=== PATIENT | male | born 1990 | race Caucasian/White ===

== ENCOUNTER 2021-04-27 01:04 | Emergency (ER) | payer BC, MEDICAID ==
[~2021-04-27] VITALS: Ht 172.7 cm; Wt 95.3 kg
[2021-04-27 01:07] VITALS: BP 141/75
--- NOTE | 2021-04-27 01:35 | NUR ---
PT BIBA BLS. TAKEN TO BED 9
[2021-04-27] MEDS ORDERED: ACETAMINOPHEN 325 MG TAB PO ONE (02:10)
--- NOTE | 2021-04-27 02:32 | NUR ---
SEEN AND EXAMINED BY DEN , WITH ORDERS AND CARRIED OUT.
[2021-04-27] MEDS ORDERED: KETOROLAC 60 MG/2 ML VIAL IM ONE (02:45)
[2021-04-27] MEDS ORDERED: IBUP-2218 PO ×2 (02:46→04:25)
[2021-04-27] MEDS ORDERED: CYCL-711 PO ×2 (02:47→04:25)
[2021-04-27 04:23] VITALS: BP 128/74
--- NOTE | 2021-04-27 04:23 | NUR ---
Patient discharged with v/s stable. Written and verbal after care instructions given and explained. Patient alert, oriented and verbalized understanding of instructions. Ambulatory with steady gait. All questions addressed prior to discharge. ID band removed. Patient advised to follow up with PMD. Rx of FLEXERIL, IBUPROFEN given. Patient educated on indication of medication including possible reaction and side effects. Opportunity to ask questions provided and answered.
== END 2021-04-27 04:23 | disposition home or self-care (01) ==
LOC: MED 01:04
DX: M79.651 Pain in right thigh (principal); Z79.899 Other long term (current) drug therapy; Z85.6 Personal history of leukemia
CPT/HCPCS: 96372; 99283; J1885